=== PATIENT | female | born 1960 | race Caucasian/White ===

== ENCOUNTER 2021-09-23 14:49 | Emergency (ER) | payer BC ==
[2021-09-23 16:37] LABS: CORONAVIRUS COVID-19 NAA NEGATIVE (NEGATIVE); INFLUENZA A NAA NEGATIVE (NEGATIVE); INFLUENZA B NAA NEGATIVE (NEGATIVE)
--- NOTE | 2021-09-23 17:56 | CR ---
INDICATION: Pain/shortness of breath. TECHNIQUE: Chest 1 view. COMPARISON: None. FINDINGS: No focal consolidation, pleural effusion, or pneumothorax. Normal heart size and pulmonary vascularity. Moderate to large hiatal hernia. 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 Degenerative changes of the right shoulder. IMPRESSION: 1. No acute cardiopulmonary findings. 2. Moderate to large hiatal hernia. Dictated by Eileen Pizarro MD @ 09/23/2021 5:54:39 PM (Electronically Signed)
[2021-09-23 18:16] LABS: BLOOD UREA NITROGEN,BUN 15 mg/dL (7.0-18.0); CARBON DIOXIDE,CO2 25.7 mmol/L (21.0-32.0); CHLORIDE,CL 101 mmol/L (98-107); GLUCOSE RANDOM 93 mg/dL (74-106); POTASSIUM,K 3.4 mmol/L (3.5-5.1); SODIUM,NA 140 mmol/L (136-145)
[2021-09-23] MEDS ORDERED: Iopamidol 755 MG/ML 500 ML Multipack Bottle IVPUSH ONE (20:33)
--- NOTE | 2021-09-23 21:42 | CT ---
INDICATION: Shortness of breath and elevated D-dimer TECHNIQUE: CT chest PE was acquired with 100 cc Isovue 370 intravenous contrast. COMPARISON: None. FINDINGS: Heart and vasculature: Contrast opacification of the pulmonary arterial tree is adequate. No sign of pulmonary embolism. The thoracic aorta is normal in caliber. No pericardial effusion. Lungs and pleural: No pleural effusion or pneumothorax. Discoid atelectasis within the bilateral lower lungs. Lymph nodes/mediastinum: No enlarged mediastinal lymph nodes. Moderate-sized hiatal hernia. Chest wall: No masses. Upper abdomen: Moderate size hiatal hernia. Decreased density of the liver without focal intrahepatic lesion. Bones: Unremarkable for age. IMPRESSION: 1. No evidence of pulmonary embolus. 2. Discoid atelectasis within the bilateral lower lungs. 3. Moderate size hiatal hernia. 4. Hepatic steatosis. Please note that all CT scans at this facility use dose modulation, iterative reconstruction, and/or weight-based dosing when appropriate to reduce radiation dose to as low as reasonably achievable. Dictated by Ryan Potts MD @ 09/23/2021 9:42:02 PM (Electronically Signed)
[2021-09-23] MEDS ORDERED: Sodium Chloride 0.9% 1,000 ML IV ONE (22:10)
--- NOTE | 2021-09-23 22:38 | EDM.PDOC ---
ED HPI GENERAL MEDICAL PROBLEM - General Chief Complaint: General Stated Complaint: SHORTNESS OF BREATH Time Seen by Provider: 09/23/21 16:22 Source of Information: Reports: Patient History Limitations: Reports: No Limitations - History of Present Illness INITIAL COMMENTS - FREE TEXT/NARRATIVE: HISTORY AND PHYSICAL: History of present illness: Patient is an otherwise healthy 61-year-old female who presents emergency room today with concern that she might have COVID-19 infection as she has been having worsening shortness of breath over the past several months, worsening over the past 1 week, headache, intermittent diarrhea. Patient states that she is fully vaccinated and has received a booster for Covid but states that she has tested negative for Covid a few times now in the clinic. Patient states that she continues to have worsening symptoms and states that today she was trying to feed the chickens and states that she was more short of breath so she had to stop her chores and relax on the couch. Patient denies any lower extremity swelling or cough. Patient denies any shortness of breath with laying flat and states that it is only associated with exertion. Patient states that she has slowly noticed this worsening over the past several months. Patient denies any blood in her stool. Patient states that she has had a few episodes of intermittent diarrhea and states that her last diarrhea episode was a few days ago but she did not make much of this. Patient states that she has also been having associated headaches and had assumed this was due to Covid. Patient denies fever, chills, chest pain, or cough. Denies neck stiff ness, change in vision, syncope, or near syncope. Denies nausea, vomiting, abdominal pain, constipation, or dysuria. Has not noted any blood in urine or stool. Patient has been eating and drinking appropriately. Review of systems: As per history of present illness and below otherwise all systems reviewed and negative. Past medical history: As per history of present illness and as reviewed below otherwise noncontributory. Surgical history: As per history of present illness and as reviewed below otherwise noncontribut ory. Social history: See social history for further information Family history: As per history of present illness and as reviewed below otherwise noncontributory. Physical exam: General: Patient is alert, oriented, and in no acute distress. Patient sitting comfortably on exam table. Vitals stable and reviewed by me. HEENT: Atraumatic, normocephalic, pupils equal and reactive bilaterally, nega tive for conjunctival pallor or scleral icterus, mucous membranes moist, throat clear, neck supple, nontender, trachea midline. No drooling or trismus noted. No meningeal signs. No hot potato voice noted. Lungs: Clear to auscultation, breath sounds equal bilaterally, chest nontender. Heart: S1S2, regular rate and rhythm without overt murmur Abdomen: Soft, nondistended, nontender. Negative for masses or hepatosplenomegaly. Negative for costovertebral tenderness. Pelvis: Stable nontender. Genitourinary: Deferred. Rectal: Tone intact. Hemoccult negative Skin: Intact, warm, dry. No lesions or rashes noted. Extremities: Atraumatic, negative for cords or calf pain. Neurovascular unremarkable. Neuro: Awake, alert, oriented. Cranial nerves II through XII unremarkable. Cerebellum unremarkable. Motor and sensory unremarkable throughout. Exam nonfocal. Medical Decision Making: Patient is an otherwise healthy 61-year-old female who presents emergency room today with concern of worsening shortness of breath over the past several months, specifically past 1 week, intermittent diarrhea, and low-grade headaches. Upon arrival to the ED, patient is vitally stable and well-appearing on exam. Patient is concerned of possible COVID-19 infection so will obtain the swab while also obtaining cardiac evaluation. Patient does not have any lower extremity edema on exam and lungs are clear. Exam is otherwise unremarkable. See Dr. Azar's dictation for specific EKG interpretation. Otherwise, normal sinus rhythm without STEMI. CBC is notable for a microcytic anemia with hemoglobin 8.7, hematocrit 28.9, and red blood cells of 3.69. Patient does have microcytic indices with MCV of 78.3, MCH of 23.6, and MCHC of 30.1. Patient also has mild thrombocytosis of 492. D- dimer is elevated at 0.89 so we will also obtain angiography. CMP does show mild hypokalemia at 3.4, troponin negative. Alk phos mildly elevated in isolation at 159. Otherwise mild derangements of CMP unremarkable. BNP WNL. Covid and influenza are negative. Bedtime Hemoccult is negative. Chest x-ray shows no acute cardiopulmonary findings. Moderate to large hiatal hernia. Angiography of the chest shows no evidence of pulmonary embolism. Discoid atelectasis within the bilateral lower lungs. Moderate sized hiatal hernia. Hepatic steatosis. Repeat H&H has improved to 8.9 Iron level is low at 14 Upon reevaluation of patient, she remains vitally stable and comfortable throughout stay in ED. I did discuss with patient my concern of iron deficiency anemia resulting in her hemoglobin being low. I did discuss that she is likely symptomatic due to her low anemia and to immediately start iron supplementation. Patient states that she has been told in the past that she did have iron deficiency states that she has never been anemic from it and stopped her iron supplementation because it was causing some constipation and undesired side effects. I have sent in a prescription of iron to the pharmacy and patient was placed on the expedited follow-up list to be seen with primary care on Sunday morning. Strict return precautions thoroughly discussed with patient. Discussed importance for follow-up with a primary care provider. Voices understanding and is agreeable to plan of care. Denies any further questions or concerns at this time. Diagnostics: EKG, CBC, CMP, chest x-ray, troponin, Covid/influenza, Hemoccult, angiography chest, D-dimer, repeat H&H, iron Therapeutics: NS Prescription: Iron Impression: Microcytic anemia, symptomatic Iron deficiency Plan: 1. Take medication as prescribed. 2. You have been placed on the expedited follow-up list with a primary care provider. Follow-up with your primary care provider closely as discussed. 3. Return to the ED as needed and as discussed. Definitive disposition and diagnosis as appropriate pending reevaluation and review of above. Headache Pain Score (Numeric/FACES): 7 - Related Data Allergies Allergy/AdvReac Type Severity Reaction Status Date / Time azithromycin [From Zithromax] Allergy Hives Verified 09/23/21 15:35 Penicillins Allergy Hives Verified 09/23/21 15:35 Sulfa (Sulfonamide Allergy Hives Verified 09/23/21 15:35 Antibiotics) Home Meds: Home Meds Albuterol Sulfate [Albuterol Sulfate Hfa] 1 dose PO DAILY PRN 09/23/21 [History] Ferrous Fumarate [Ferretts] 322 mg PO BID 60 Days #120 tablet 09/23/21 [Rx] Past Medical History - Past Health History Medical/Surgical History: Denies Medical/Surgical History Social & Family History - Tobacco Use Tobacco Use Status *Q: Former Tobacco User Used Tobacco, but Quit: Yes Month/Year Tobacco Last Used: 1 - Recreational Drug Use Recreational Drug Use: No ED ROS GENERAL - Review of Systems Review Of Systems: Comprehensive ROS is negative, except as noted in HPI. ED EXAM, GENERAL - Physical Exam Exam: See Below (see dictation) Course - Vital Signs Last Recorded V/S: Last Vital Signs Temp 97.2 F 09/23/21 15:37 Pulse 83 09/23/21 15:37 Resp 16 09/23/21 15:37 BP 177/84 H 09/23/21 15:37 Pulse Ox 98 09/23/21 15:37 - Orders/Labs/Meds Labs: Laboratory Tests 09/23/21 09/23/21 09/23/21 Range/Units 15:43 17:37 17:37 WBC 8.40 (4.0-11.0) K/uL RBC 3.69 L (4.30-5.90) M/uL Hgb 8.7 L (12.0-16.0) g/dL Hct 28.9 L (36.0-46.0) % MCV 78.3 L (80.0-98.0) fL MCH 23.6 L (27.0-32.0) pg MCHC 30.1 L (31.0-37.0) g/dL RDW Std Deviation 45.2 (28.0-62.0) fl RDW Coeff of Kathy 16 H (11.0-15.0) % Plt Count 492 H (150-400) K/uL MPV 9.60 (7.40-12.00) fL Neut % (Auto) 71.3 (48.0-80.0) % Lymph % (Auto) 18.3 (16.0-40.0) % [place] % (Auto) 8.0 (0.0-15.0) % Eos % (Auto) 1.7 (0.0-7.0) % Baso % (Auto) 0.7 (0.0-1.5) % Neut # (Auto) 6.0 H (1.4-5.7) K/uL Lymph # (Auto) 1.5 (0.6-2.4) K/uL [place] # (Auto) 0.7 (0.0-0.8) K/uL Eos # (Auto) 0.1 (0.0-0.7) K/uL Baso # (Auto) 0.1 (0.0-0.1) K/uL Nucleated RBC % 0.0 /100WBC Nucleated RBCs # 0 K/uL D-Dimer, Quantitative (0.0-0.50) mg/L FEU Sodium 140 (136-145) mmol/L Potassium 3.4 L (3.5-5.1) mmol/L Chloride 101 (98-107) mmol/L Carbon Dioxide 25.7 (21.0-32.0) mmol/L BUN 15 (7.0-18.0) mg/dL Creatinine 0.6 (0.6-1.0) mg/dL Est Cr Clr Drug Dosing 100.58 mL/min Estimated GFR (MDRD) > 60.0 ml/min Glucose 93 (74-106) mg/dL Calcium 9.0 (8.5-10.1) mg/dL Iron (50-175) ug/dL Total Bilirubin 0.3 (0.2-1.0) mg/dL AST 15 (15-37) IU/L ALT 25 (14-63) IU/L Alkaline Phosphatase 159 H (46-116) U/L Troponin I < 0.050 (0.000-0.056) ng/mL B-Natriuretic Peptide (<100) PG/ML Total Protein 7.6 (6.4-8.2) g/dL Albumin 3.2 L (3.4-5.0) g/dL Globulin 4.4 H (2.6-4.0) g/dL Albumin/Globulin Ratio 0.7 L (0.9-1.6) Influenza Type A RNA NEGATIVE (NEGATIVE) Influenza Type B RNA NEGATIVE (NEGATIVE) SARS-CoV-2 RNA (GENOVEVA) NEGATIVE (NEGATIVE) Blood Type Antibody Screen 09/23/21 09/23/21 09/23/21 Range/Units 17:37 17:37 19:12 WBC (4.0-11.0) K/uL RBC (4.30-5.90) M/uL Hgb (12.0-16.0) g/dL Hct (36.0-46.0) % MCV (80.0-98.0) fL MCH (27.0-32.0) pg MCHC (31.0-37.0) g/dL RDW Std Deviation (28.0-62.0) fl RDW Coeff of Kathy (11.0-15.0) % Plt Count (150-400) K/uL MPV (7.40-12.00) fL Neut % (Auto) (48.0-80.0) % Lymph % (Auto) (16.0-40.0) % [place]ann[place] % (Auto) (0.0-15.0) % Eos % (Auto) (0.0-7.0) % Baso % (Auto) (0.0-1.5) % Neut # (Auto) (1.4-5.7) K/uL Lymph # (Auto) (0.6-2.4) K/uL [place]ann[place] # (Auto) (0.0-0.8) K/uL Eos # (Auto) (0.0-0.7) K/uL Baso # (Auto) (0.0-0.1) K/uL Nucleated RBC % /100WBC Nucleated RBCs # K/uL D-Dimer, Quantitative 0.89 H (0.0-0.50) mg/L FEU Sodium (136-145) mmol/L Potassium (3.5-5.1) mmol/L Chloride (98-107) mmol/L Carbon Dioxide (21.0-32.0) mmol/L BUN (7.0-18.0) mg/dL Creatinine (0.6-1.0) mg/dL Est Cr Clr Drug Dosing mL/min Estimated GFR (MDRD) ml/min Glucose (74-106) mg/dL Calcium (8.5-10.1) mg/dL Iron 14 L (50-175) ug/dL Total Bilirubin (0.2-1.0) mg/dL AST (15-37) IU/L ALT (14-63) IU/L Alkaline Phosphatase (46-116) U/L Troponin I (0.000-0.056) ng/mL B-Natriuretic Peptide (<100) PG/ML Total Protein (6.4-8.2) g/dL Albumin (3.4-5.0) g/dL Globulin (2.6-4.0) g/dL Albumin/Globulin Ratio (0.9-1.6) Influenza Type A RNA (NEGATIVE) Influenza Type B RNA (NEGATIVE) SARS-CoV-2 RNA (GEN[place]) (NEGATIVE) Blood Type O POSITIVE Antibody Screen NEGATIVE 09/23/21 09/23/21 Range/Units 21:12 21:12 WBC (4.0-11.0) K/uL RBC (4.30-5.90) M/uL Hgb 8.9 L (12.0-16.0) g/dL Hct 29.5 L (36.0-46.0) % MCV (80.0-98.0) fL MCH (27.0-32.0) pg MCHC (31.0-37.0) g/dL RDW Std Deviation (28.0-62.0) fl RDW Coeff of Kathy (11.0-15.0) % Plt Count (150-400) K/uL MPV (7.40-12.00) fL Neut % (Auto) (48.0-80.0) % Lymph % (Auto) (16.0-40.0) % [place] % (Auto) (0.0-15.0) % Eos % (Auto) (0.0-7.0) % Baso % (Auto) (0.0-1.5) % Neut # (Auto) (1.4-5.7) K/uL Lymph # (Auto) (0.6-2.4) K/uL [place] # (Auto) (0.0-0.8) K/uL Eos # (Auto) (0.0-0.7) K/uL Baso # (Auto) (0.0-0.1) K/uL Nucleated RBC % /100WBC Nucleated RBCs # K/uL D-Dimer, Quantitative (0.0-0.50) mg/L FEU Sodium (136-145) mmol/L Potassium (3.5-5.1) mmol/L Chloride (98-107) mmol/L Carbon Dioxide (21.0-32.0) mmol/L BUN (7.0-18.0) mg/dL Creatinine (0.6-1.0) mg/dL Est Cr Clr Drug Dosing mL/min Estimated GFR (MDRD) ml/min Glucose (74-106) mg/dL Calcium (8.5-10.1) mg/dL Iron (50-175) ug/dL Total Bilirubin (0.2-1.0) mg/dL AST (15-37) IU/L ALT (14-63) IU/L Alkaline Phosphatase (46-116) U/L Troponin I (0.000-0.056) ng/mL B-Natriuretic Peptide 11 (<100) PG/ML Total Protein (6.4-8.2) g/dL Albumin (3.4-5.0) g/dL Globulin (2.6-4.0) g/dL Albumin/Globulin Ratio (0.9-1.6) Influenza Type A RNA (NEGATIVE) Influenza Type B RNA (NEGATIVE) SARS-CoV-2 RNA (GEN[place]A) (NEGATIVE) Blood Type Antibody Screen Meds: Medications Discontinued Medications Generic Name Dose Route Start Last Admin Trade Name Freq PRN Reason Stop Dose Admin Sodium Chloride 1,000 mls @ 999 mls/hr 09/23/21 22:10 09/23/21 22:32 Normal Saline IV 09/23/21 23:10 999 mls/hr STAT ONE Administration Iopamidol 100 ml 09/23/21 20:33 09/23/21 20:51 Iopamidol 755 Mg/Ml 500 Ml Multipack Bottle IVPUSH 09/23/21 20:34 75 ml ONETIME ONE Administration Departure - Departure Time of Disposition: 22:37 Disposition: Home, Self-Care 01 Clinical Impression: Microcytic anemia, Iron deficiency - Discharge Information Prescriptions: Ferrous Fumarate [Ferretts] 322 mg PO BID 60 Days #120 tablet Referrals: PCP,None [Primary Care Provider] - Forms: ED Department Discharge Additional Instructions: The following information is given to patients seen in the emergency department who are being discharged to home. This information is to outline your options for follow-up care. We provide all patients seen in our emergency department with a follow-up referral. The need for follow-up, as well as the timing and circumstances, are variable depending upon the specifics of your emergency department visit. If you don't have a primary care physician on staff, we will provide you with a referral. We always advise you to contact your personal physician following an emergency department visit to inform them of the circumstance of the visit and for follow-up with them and/or the need for any referrals to a consulting specialist. The emergency department will also refer you to a specialist when appropriate. This referral assures that you have the opportunity for follow-up care with a specialist. All of these measure are taken in an effort to provide you with optimal care, which includes your follow-up. Under all circumstances we always encourage you to contact your private p hysician who remains a resource for coordinating your care. When calling for follow-up care, please make the office aware that this follow-up is from your recent emergency room visit. If for any reason you are refused follow-up, please contact the [facility] Emergency Department at and asked to speak to the emergency department charge nurse. [facility] [address] [place] [id number] [facility] [address] [place] [id number] 1. Take medication as prescribed. 2. You have been placed on the expedited follow-up list with a primary care provider. Follow-up with your primary care provider closely as discussed. 3. Return to the ED as needed and as discussed.
--- NOTE | 2021-09-24 03:38 | PCM.EKG ---
#1 Interpretation EKG Date: 09/23/21 Time: 17:22 Rhythm: NSR Rate (Beats/Min): 72 [place]: Normal P-Wave: Present QRS: Normal ST-T: Normal QT: Normal Comparison: NA - No Prior EKG EKG Interpretation Comments: Sinus Rhythm
== END 2021-09-23 23:57 | disposition home or self-care (01) ==
LOC: MW.ED 14:49
DX: D50.0 Iron deficiency anemia secondary to blood loss (chronic) (principal); Z88.0 Allergy status to penicillin; Z88.1 Allergy status to other antibiotic agents; Z88.2 Allergy status to sulfonamides; Z87.891 Personal history of nicotine dependence; Z20.822 Contact with and (suspected) exposure to COVID-19
CPT/HCPCS: 0240U; 36415; 71045; 71275; 80053; 83540; 83880; 84484; 85014; 85018; 85025; 85379; 86850; 86900; 86901; 93005; 99285; J7030; Q9967

== ENCOUNTER 2021-10-26 08:23 | Day surgery (SDC) | payer BC ==
[~2021-10-26 08:23] MED LIST: Lactated Ringers 1,000 ML IV SCH; propofoL 50 ML ONE
[2021-10-26] MEDS ORDERED: fentaNYL 100 MCG/2 ML SDV ONE (08:50)
--- NOTE | 2021-10-26 09:37 | PCM.PREANE ---
Preanesthetic Assessment - Procedure Proposed Procedure: EGD, Colonoscopy - Anesthesia/Transfusion/Family Hx Anesthesia History: Prior Anesthesia Without Reaction Family History of Anesthesia Reaction: No Transfusion History: Prior Transfusion Without Reaction - Review of Systems General: No Symptoms Pulmonary: No Symptoms (Quit smoking 02/09, Allergy induced asthma with rare use of MDI) Cardiovascular: No Symptoms Gastrointestinal: No Symptoms Neurological: No Symptoms (Febrile seizures as a child) Other: Reports: None - Physical Assessment NPO Status Date: 10/25/21 NPO Status Time: 23:59 Vital Signs: Last Vital Signs Temp 97.5 F 10/26/21 08:50 Pulse 82 10/26/21 08:50 Resp 16 10/26/21 08:50 BP 148/90 H 10/26/21 08:50 Pulse Ox 98 10/26/21 08:50 Height: 5 ft 8 in Weight: 108.409 kg ASA Class: 2 Mental Status: Alert & Oriented x3 Airway Class: Mallampati = 4 Dentition: Reports: Normal Dentition Thyro-Mental Finger Breadths: 3 Mouth Opening Finger Breadths: 3 ROM/Head Extension: Full Lungs: Clear to Auscultation, Normal Respiratory Effort Cardiovascular: Regular Rate, Regular Rhythm - Allergies Allergies/Adverse Reactions: Allergies Allergy/AdvReac Type Severity Reaction Status Date / Time azithromycin [From Zithromax] Allergy Hives Verified 10/20/21 07:50 Penicillins Allergy Hives Verified 10/20/21 07:50 Sulfa (Sulfonamide Allergy Hives Verified 10/20/21 07:50 Antibiotics) - Acknowledgements Anesthesia Type Planned: General Anesthesia Pt an Appropriate Candidate for the Planned Anesthesia: Yes Alternatives and Risks of Anesthesia Discussed w Pt/Guardian: Yes Pt/Guardian Understands and Agrees with Anesthesia Plan: Yes PreAnesthesia Questionnaire - Past Health History Medical/Surgical History: Denies Medical/Surgical History HEENT History: Reports: Allergic Rhinitis, Other (See Below) Other HEENT History: wears glasses Cardiovascular History: Reports: Other (See Below) Other Cardiovascular History: "now have hypertension due to anemia", on no medications Respiratory History: Reports: Other (See Below) Other Respiratory History: had pneumonia in January 2021 and was prescribed a inhaler, presently "SOB at times due to anemia" Gastrointestinal History: Reports: Other (See Below) Other Gastrointestinal History: occasional heartburn Genitourinary History: Reports: Pyelonephritis [employer] History: Reports: Musculoskeletal History: Reports: Arthritis Other Musculoskeletal History: occasional pain in left ankle and right knee Neurological History: Reports: Concussion Psychiatric History: Reports: Anxiety Endocrine/Metabolic History: Reports: Obesity/BMI 30+ Other Endocrine/Metabolic History: "prediabetic" Hematologic History: Reports: Anemia, Blood Transfusion(s) Other Hematologic History: blood transfusion following delivery of her last child Immunologic History: Reports: None Oncologic (Cancer) History: Reports: None Dermatologic History: Reports: None - Past Surgical History Head Surgeries/Procedures: Reports: None HEENT Surgical History: Reports: Tonsillectomy Cardiovascular Surgical History: Reports: None Respiratory Surgical History: Reports: None GI Surgical History: Reports: Other (See Below) Other GI Surgeries/Procedures: sigmoidoscopy, 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 Female Surgical History: Reports: D&C Endocrine Surgical History: Reports: None Neurological Surgical History: Reports: None Musculoskeletal Surgical History: Reports: None Oncologic Surgical History: Reports: None Dermatological Surgical History: Reports: None - SUBSTANCE USE Tobacco Use Status *Q: Former Tobacco User Tobacco Use Within Last Twelve Months: Cigarettes - HOME MEDS Home Medications: Home Meds Albuterol Sulfate [Albuterol Sulfate Hfa] 1 - 2 puff PO ASDIRECTED PRN 09/23/21 [History] Ferrous Fumarate [Ferretts] 325 mg PO DAILY 10/20/21 [History] - CURRENT (IN HOUSE) MEDS Current Meds: Current Medications Lactated Ringer's (Ringers, Lactated) 1,000 mls @ 125 mls/hr IV ASDIRECTED [facility] Last Admin: 10/26/21 08:49 Dose: 125 mls/hr Documented by: Discontinued Medications Fentanyl (Fentanyl 100 Mcg/2 Ml Sdv) Confirm Administered Dose 100 mcg .ROUTE .STK-MED ONE Stop: 10/26/21 08:51 Propofol (Diprivan 50 Ml) Confirm Administered Dose 50 mls @ as directed .ROUTE .STK-MED ONE Stop: 10/26/21 07:36 Lidocaine HCl (Lidocaine 1% 5 Ml Sdv) Confirm Administered Dose 5 ml .ROUTE .STK-MED ONE Stop: 10/26/21 08:51
[2021-10-26] MEDS ORDERED: Propofol 200 MG/20 ML SDV ONE (11:27)
--- NOTE | 2021-10-26 11:37 | PCM.OPNOTE ---
- General Post-Op/Procedure Note Date of Surgery/Procedure: 10/26/21 Operative Procedure(s): EGD with Biopsies. Colonoscopy Findings: hiatal hernia Diverticulosis dictation number [id number] Pre Op Diagnosis: Microcyitc anemia Post-Op Diagnosis: hiatal hernia. Diverticulosis Anesthesia Technique: Moderate Sedation Primary Surgeon: Mark Becker Complications: None Condition: Good
--- NOTE | 2021-10-26 11:43 | PCM.POSTAN ---
POST ANESTHESIA ASSESSMENT - MENTAL STATUS Mental Status: Alert, Oriented - VITAL SIGNS Vital Signs: Last Vital Signs Temp 97.5 F 10/26/21 08:50 Pulse 82 10/26/21 08:50 Resp 16 10/26/21 08:50 BP 148/90 H 10/26/21 08:50 Pulse Ox 98 10/26/21 08:50 - RESPIRATORY Respiratory Status: Respiratory Rate WNL, Airway Patent, O2 Saturation Stable - CARDIOVASCULAR CV Status: Pulse Rate WNL, Blood Pressure Stable - GASTROINTESTINAL GI Status: No Symptoms - PAIN Pain Score: 0 - POST OP HYDRATION Hydration Status: Adequate & Stable
--- NOTE | 2021-10-26 11:55 | PCM48HPAN ---
Post Anesthesia Note - EVALUATION WITHIN 48HRS OF ANESTHETIC Vital Signs in Normal Range: Yes Patient Participated in Evaluation: Yes Respiratory Function Stable: Yes Airway Patent: Yes Cardiovascular Function Stable: Yes Hydration Status Stable: Yes Pain Control Satisfactory: Yes Nausea and Vomiting Control Satisfactory: Yes Mental Status Recovered: Yes Vital Signs: Last Vital Signs Temp 98.2 F 10/26/21 11:40 Pulse 66 10/26/21 11:50 Resp 11 L 10/26/21 11:50 BP 135/76 10/26/21 11:50 Pulse Ox 100 10/26/21 11:50 - COMMENTS/OBSERVATIONS Free Text/Narrative:: Pt doing well post-op. VSS. No apparent anesthetic complications. Dr. Julian Jung
--- NOTE | 2021-10-26 12:30 | OR ---
SURGEON: BRIEN AGUIRRE MD DATE OF PROCEDURE: 10/26/2021 PREOPERATIVE DIAGNOSIS: Microcytic anemia. POSTOPERATIVE DIAGNOSES: 1. Hiatal hernia. 2. Diverticulosis. PROCEDURES PERFORMED: 1. Esophagogastroduodenoscopy with biopsy. 2. Colonoscopy. PRIMARY SURGEON: Brien Aguirre MD ANESTHESIA: With Anesthesiology. EXTENT OF THE COLONOSCOPY: To the cecum. EXTENT OF THE EGD: To the duodenum. SPECIMENS: Biopsies from EGD. LIMITATIONS: None. BOWEL PREP: Excellent. REASON FOR PROCEDURE: Patient is a pleasant 61-year-old female who was found to have microcytic anemia. She does have a family history of colon cancer with her father having colon cancer in his mid 50s. This would be her first colonoscopy, although she says she did have a sigmoidoscopy in 1994 that was normal. She says she occasionally gets some heartburn, but denies any swallowing issues. She says she has been told she had a hiatal hernia in the past. PROCEDURE IN DETAIL: Physical examination was performed. The major risks and benefits associated with the procedure were explained to the patient in detail. The patient verbalized understanding and agreement of the same. The patient was then connected to the appropriate monitoring devices and IV started. EKG, pulse, pulse oximetry, blood pressure, and capnography were monitored throughout the entire procedure. Continuous oxygen and sedation were provided by the anesthesiologist. The patient was placed in left lateral decubitus position. Sedation was began. After adequate sedation was achieved, an upper endoscope was advanced under direct visualization without difficulty in the upper GI tract. The anatomy and mucosa of the esophagus, GE junction, stomach, pylorus, and duodenum were inspected. Duodenum appeared normal. Scope was brought up to the stomach. Both retrograde and antegrade views were done of the stomach. Stomach appeared fairly normal. Did do biopsies of the antrum and pylorus area to check for H pylori. Scope was brought to the GE junction. GE junction was approximately 35 cm from her incisor. Did have a good squamocolumnar junction. Did appear to have a sliding hiatal hernia. The scope was brought into the stomach. Stomach was deinsufflated. Scope was brought to the esophagus. Esophagus appeared normal. Scope was completely removed and this part of the procedure was terminated. The scopes were changed. Rectal examination done. No rectal masses or polyps were felt. Now, a well- lubricated Olympus colonoscope was inserted in the rectum and advanced under direct visualization to the level of the cecum. Cecum was identified by both visual and anatomic landmarks. Photographs were taken of the cecal cap and terminal ileum. The scope was then slowly withdrawn in a circular fashion looking at the color, texture, anatomy, and integrity of mucosa from the cecum to the anal canal. The patient had some limited liquid stool which was suctioned and irrigated out for a great look at the mucosa. No polyps or lesions were seen. The patient did have some scant diverticulosis throughout her descending and sigmoid colon. The scope was retroflexed in the rectum. Scope was completely removed and procedure was terminated. ENDOSCOPIC DIAGNOSES: 1. Hiatal hernia. 2. Diverticulosis. RECOMMENDATIONS: Followup colonoscopy should be in five years because of her family history of colon cancer. Patient will follow up in clinic to go over her EGD and colonoscopy results. ROSALVA / DEIDRA /[id number]
== END 2021-10-26 12:19 | disposition home or self-care (01) ==
LOC: MW.SDS 08:23
PROVIDERS: ATTEND Surgery
DX: K57.30 Diverticulosis of large intestine without perforation or abscess without bleeding (principal); D50.9 Iron deficiency anemia, unspecified; K44.9 Diaphragmatic hernia without obstruction or gangrene; K31.89 Other diseases of stomach and duodenum; E66.9 Obesity, unspecified; Z88.0 Allergy status to penicillin; Z88.8 Allergy status to other drugs, medicaments and biological substances; Z80.0 Family history of malignant neoplasm of digestive organs; Z87.891 Personal history of nicotine dependence; Z98.890 Other specified postprocedural states; Z68.36 Body mass index [BMI] 36.0-36.9, adult
CPT/HCPCS: 43239; 45378; J2704; J3010; J7120; 00813

== ENCOUNTER 2024-04-02 09:11 | Day surgery (SDC) | payer BC ==
[2024-04-02] MEDS: Lactated Ringers 1,000 ML IV SCH (09:47)
[2024-04-02] MEDS ORDERED: Lidocaine 2% 5 ML SDV ONE (10:01)
[2024-04-02] MEDS ORDERED: Propofol 200 MG/20 ML SDV ONE (10:01)
[2024-04-02] MEDS ORDERED: Esmolol 100 MG/10 ML SDV ONE (11:07)
[2024-04-02] MEDS ORDERED: Metoprolol Tartrate 5 MG/5 ML SDV ONE (11:13)
== END 2024-04-02 12:00 | disposition home or self-care (01) ==
LOC: MW.SDS 09:11
PROVIDERS: ATTEND Surgery
DX: K21.00 Gastro-esophageal reflux disease with esophagitis, without bleeding (principal); K29.50 Unspecified chronic gastritis without bleeding; K25.9 Gastric ulcer, unspecified as acute or chronic, without hemorrhage or perforation; K44.9 Diaphragmatic hernia without obstruction or gangrene; E11.9 Type 2 diabetes mellitus without complications; I10 Essential (primary) hypertension; E66.9 Obesity, unspecified; Z87.891 Personal history of nicotine dependence; Z79.84 Long term (current) use of oral hypoglycemic drugs; Z79.899 Other long term (current) drug therapy; Z88.0 Allergy status to penicillin; Z88.2 Allergy status to sulfonamides; Z88.1 Allergy status to other antibiotic agents
CPT/HCPCS: 00731; 82947; J2704; J3490; J7120